=== PATIENT | male | born 1960 ===

== ENCOUNTER → 2024-06-20 | Outpatient (CLI) | payer MEDICARE, BC | END | disposition home or self-care (01) | LOC: Rad HDHVI 08:09 | PROVIDERS: ATTEND Internal Medicine Cardiovascular Disease | DX: I10 Essential (primary) hypertension (principal) | CPT/HCPCS: 93306 ==

== ENCOUNTER → 2024-07-24 | Outpatient (CLI) | payer MEDICARE, BC ==
[~2024-07-24] VITALS: Ht 188 cm; Wt 99.3 kg
--- NOTE | 2024-07-31 13:55 | DVHSR ---
APPROVED REPORT Exam: Nuclear Stress Test Indication: Syncope Ht: 6 ft 2 in Wt: 219 lbs BSA: 2.26 m2 HR: 61 bpm BP: 118/73 mmHg BMI: 28.11 Rhythm: NSR Medical History Medical History: HTN, Hyperlipidemia, CHF, Syncope, Dizziness Medications: Benicar hct, Metoprolol tartrate, Rosuvastatin Allergies: No known drug allergies Stress Test Details Stress Test: Exercise stress testing was performed using a Erasto protocol. HR Resting HR: 61 bpmMax Heart Rate (APMHR): 154.826393 bpm Max HR Achieved: 146 bpmTarget HR (85% APMHR): 130.944162 bpm % of APMHR: 94.81 Recovery HR: 78 bpm HR response to stress: Normal HR response to stress BP Resting BP: 118/73 mmHg Max BP: 177/71 mmHg Recovery BP: 132/67 mmHg BP response to stress: Hypertensive response ECG Resting ECG: Sinus Rhythm Stress ECG: Sinus Tachycardia Arrhythmia: APC's, VPC's Recovery ECG: Sinus Rhythm Clinical Reason for Termination: Target HR achieved Stress Symptoms: None Exercise duration: 5 min sec Exercise capacity: 7.0 METs Stress ECG Conclusion CLINICAL RESPONSE NON ISCHEMIC ECG RESPONSE NON ISCHEMIC EF 45% GLOBAL HYPOPERFUSION NO PERFUSION ABNL NM EXAM: Myocardial Perfusion REST/STRESS Imaging Protocol: Rest Tc-99m/Stress Tc-99m 1 day Resting Data Rest SPECT myocardial perfusion imaging was performed in supine position 30 minutes following the int ravenous injection of 10.15 mCi of Tc-99m Sestamibi. Time of rest injection: 0917 Time of rest imagin Administration Route: IV Administration Site: Left AC Exercise Stress At peak stress, the patient was injected intravenously with 31.2 mCi of Tc-99m Sestamibi. Time of stress injection: 1025 Time of stress imagin Administration Route: IV Administration Site: Left AC Heart Rate at time of stress injection: 144 bpm. Patient continued to exercise for 1 minute(s). Gated Stress SPECT was performed 15 minutes after stress injection. The images were gated to evaluate regional wall motion and calculate left ventricular ejection fracti on. Comments Cardiolite injection at 3 minutes, 56 seconds into test. Study Data Post stress, the left ventricular ejection was 51%.. Nuclear Conclusion CLINICAL RESPONSE NON ISCHEMIC ECG RESPONSE NON ISCHEMIC EF 45% GLOBAL HYPOPERFUSION NO PERFUSION ABNL
== END | disposition home or self-care (01) ==
LOC: Rad HDHVI 09:03
PROVIDERS: ATTEND Internal Medicine Cardiovascular Disease
DX: I49.3 Ventricular premature depolarization (principal); I49.1 Atrial premature depolarization; I11.0 Hypertensive heart disease with heart failure; I50.33 Acute on chronic diastolic (congestive) heart failure; E78.5 Hyperlipidemia, unspecified; R55 Syncope and collapse; R11.0 Nausea
CPT/HCPCS: 78452; 93017; 96374; A9500